=== PATIENT | female | born 1945 | race Caucasian/White ===

== ENCOUNTER → 2017-12-20 14:26 | Outpatient (CLI) | payer MEDICARE, OTHER, SELFPAY ==
[2017-12-20 16:04] LABS: Absolute Lymphocyte Count 8.63 X10^3/ul (0.83-4.51); Absolute Neutrophil Count 4.1 X10^3/uL (2.0-7.7); Basophil# 0.08 X10^3/uL; Basophil% 0.6 % (0-1); Eosinophil# 0.15 X10^3/uL; Eosinophils% 1.1 % (0-5); Hematocrit 44.5 % (37-47); Hemoglobin 14.8 g/dl (12.0-15.0); Lymphocyte # 8.63 X10^3/ul (4.0); Lymphocyte % 63.3 % (19-41); Mean Corp Hgb Conc 33.3 g/gl (32-36); Mean Corpuscular Hgb 30.3 pg (27.0-32.0); Mean Platelet Vol. 11.6 fl (6.2-12.0); Monocyte# 0.59 X10^3/uL; Monocyte% 4.3 % (0-10); Neutrophil # 4.14 X10^3/uL (2.7-7.7); Neutrophil % 30.4 % (47-70); Platelet Count 226 K/mm3 (150-450); RBC Distribution Width CV 13.4 % (11.6-14.6); RBC Distribution Width SD 44.5 fl (35.1-43.9); Red Blood Count 4.89 M/mm3 (4.2-5.4); White Blood Count 13.6 K/mm3 (4.4-11.0)
[2017-12-20 16:05] LABS: Differential Indicated SCAN CRITERIA MET; POSITIVE COUNT NO; POSITIVE DIFFERENTIAL YES; POSITIVE MORPHOLOGY NO
[2017-12-20 16:15] LABS: Differential Comment SCANNED
== END ==
PROVIDERS: Family Provider Family Medicine; PCP Family Medicine; Visit Provider Family Medicine
DX: C91.90 Lymphoid leukemia, unspecified not having achieved remission (principal)
CPT/HCPCS: 36415; 85025

== ENCOUNTER → 2018-06-20 10:00 | Outpatient (CLI) | payer MEDICARE, OTHER, SELFPAY ==
[2018-06-20 11:55] LABS: Absolute Lymphocyte Count 6.97 X10^3/ul (0.83-4.51); Absolute Neutrophil Count 3.7 X10^3/uL (2.0-7.7); Basophil# 0.07 X10^3/uL; Basophil% 0.6 % (0-1); Eosinophil# 0.14 X10^3/uL; Eosinophils% 1.2 % (0-5); Hematocrit 44.6 % (37-47); Hemoglobin 14.4 g/dl (12.0-15.0); Lymphocyte # 6.97 X10^3/ul (4.0); Lymphocyte % 61.3 % (19-41); Mean Corp Hgb Conc 32.3 g/gl (32-36); Mean Corpuscular Hgb 29.6 pg (27.0-32.0); Mean Corpuscular Volume 91.8 fL (81-99); Mean Platelet Vol. 12.1 fl (6.2-12.0); Monocyte# 0.44 X10^3/uL; Monocyte% 3.9 % (0-10); Neutrophil # 3.73 X10^3/uL (2.7-7.7); Neutrophil % 32.8 % (47-70); Platelet Count 210 K/mm3 (150-450); RBC Distribution Width CV 13.4 % (11.6-14.6); RBC Distribution Width SD 44.5 fl (35.1-43.9); Red Blood Count 4.86 M/mm3 (4.2-5.4); White Blood Count 11.4 K/mm3 (4.4-11.0)
[2018-06-20 12:01] LABS: Differential Indicated SCAN CRITERIA MET; POSITIVE COUNT NO; POSITIVE DIFFERENTIAL YES; POSITIVE MORPHOLOGY NO
--- OUTSIDE RECORDS SUMMARY | 2018-08-06 08:51 | XMS RPT_ITS ---
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, Community unspecified not Hospital having achieved Repository remission / C91.90(ICD-10) PROCEDURES PROCEDURES No Procedure Records FoundRESULTS RESULTS CBC W/DIFF, AUTOMATED Collected: 06/20/2018 Status: F Source: [place] 10:02 AM [facility] REPOSITORY TYPE CODE TESTS RESULT OUT OF RANGE REFERENCE UNITS LAB L100.1000 4.4-11.0 K/mm3 High WBC 11.4 LAB L100.1200 4.2-5.4 M/mm3 Normal RBC 4.86 LAB L100.1300 12.0-15.0 g/dl Normal HGB 14.4 LAB L100.1400 37-47 % Normal HCT 44.6 LAB L100.1500 81-99 fL Normal MCV 91.8 LAB L100.1600 27.0-32.0 pg Normal MCH 29.6 LAB L100.1700 32-36 g/gl Normal MCHC 32.3 LAB L100.1810 11.6-14.6 % Normal RDW CV 13.4 LAB L100.1820 35.1-43.9 fl High RDW SD 44.5 LAB L100.1900 150-450 K/mm3 Normal PLT 210 LAB L100.2000 6.2-12.0 fl High MPV 12.1 LAB L100.2100 47-70 % Low NEUT% 32.8 LAB L100.2200 19-41 % High LY% 61.3 LAB L100.2300 0-10 % Normal MONO% 3.9 LAB L100.2400 0-5 % Normal EO% 1.2 LAB L100.2500 0-1 % Normal BASO% 0.6 LAB L100.2550 0.0-0.9 % Normal IM GRAN % 0.200 Result Comment: IG% - Immature Granulocytes (promyelocytes, myelocytes and metamyelocytes) > 1% indicates that a LEFT SHIFT is Present. LAB L100.2620 2.0-7.7 X10 3/uL Normal Absolute Neut 3.7 LAB L100.2720 0.83-4.51 X10 3/ul High Absolute Lymph 6.97 LAB L100.4500 Normal SMEAR COMMENT COMMENT Result Comment: SLIDE SCANNED - LYMPHOCYTOSIS NOTED. Performed By: #### L100.0100 #### [facility] [place], [address] CBC W/DIFF, AUTOMATED Collected: 12/20/2017 Status: F Source: [place] 2:31 PM [facility] REPOSITORY TYPE CODE TESTS RESULT OUT OF RANGE REFERENCE UNITS LAB L100.1000 4.4-11.0 K/mm3 High WBC 13.6 LAB L100.1200 4.2-5.4 M/mm3 Normal RBC 4.89 LAB L100.1300 12.0-15.0 g/dl Normal HGB 14.8 LAB L100.1400 37-47 % Normal HCT 44.5 LAB L100.1500 81-99 fL Normal MCV 91.0 LAB L100.1600 27.0-32.0 pg Normal MCH 30.3 LAB L100.1700 32-36 g/gl Normal MCHC 33.3 LAB L100.1810 11.6-14.6 % Normal RDW CV 13.4 LAB L100.1820 35.1-43.9 fl High RDW SD 44.5 LAB L100.1900 150-450 K/mm3 Normal PLT 226 LAB L100.2000 6.2-12.0 fl Normal MPV 11.6 LAB L100.2100 47-70 % Low NEUT% 30.4 LAB L100.2200 19-41 % High LY% 63.3 LAB L100.2300 0-10 % Normal MONO% 4.3 LAB L100.2400 0-5 % Normal EO% 1.1 LAB L100.2500 0-1 % Normal BASO% 0.6 LAB L100.2550 0.0-0.9 % Normal IM GRAN % 0.300 Result Comment: IG% - Immature Granulocytes (promyelocytes, myelocytes and metamyelocytes) > 1% indicates that a LEFT SHIFT is Present. LAB L100.2620 2.0-7.7 X10 3/uL Normal Absolute Neut 4.1 LAB L100.2720 0.83-4.51 X10 3/ul High Absolute Lymph 8.63 LAB L100.4500 Normal SMEAR COMMENT SCANNED Result Comment: LYMPHOCYTOSIS NOTED Performed By: #### L100.0100 #### [facility] [address] [place], [address] ALLERGIES ALLERGIES No Allergies Records FoundENCOUNTERS ENCOUNTERS ADMIT/DISCHARGE ACCOUNT ADMITTING ENCOUNTER LOCATION SOURCE NUMBER CLASS 06/20/2018 [id number] Ambulatory [facility] 6 [facility] ing:MFPLAB Repository 12/20/2017 [id number] [facility] 3 [facility] ing:MFPLAB Repository PAYERS PAYERS ENCOUNTER GUARANTOR PAYER SUBSCRIBER SOURCE 06/20/2018 RENEE Primary RENEE Víctor [id number] Insurance:MEDICARE [facility] [id number] [address] Number: Repository [place] [id number]: ([phone]) Date:2018-06-20 [phone] () 06/20/2018 Secondary RENEE [place]ctor Insurance:COMMERCIAL SHEPLERDOB[id number] [id number] Repository Date:2018-06-20, / /WP: 06/20/2018 Tertiary NOT GIVENUNK [place] Insurance:SELF PAY [facility] Number: Effective Repository Date:2018-06-20 12/20/2017 RENEE Primary RENEE Víctor [id number] Insurance:MEDICARE SHEPLERDOB: [id number] Number: Repository [place] [id number]: [phone]) Date:2017-12-20 [phone] () 12/20/2017 Secondary RENEE [place] Insurance:COMMERCIAL SHEPLERDOB: [facility] [id number] [id number] Repository Date:2017-12-20//, / /WP: 12/20/2017 Tertiary NOT GIVENUNK [place] Insurance:SELF PAY [facility]: Effective Repository Date:2017-12-20
== END ==
PROVIDERS: Family Provider Family Medicine; PCP Family Medicine; Visit Provider Family Medicine
DX: C91.10 Chronic lymphocytic leukemia of B-cell type not having achieved remission (principal)
CPT/HCPCS: 36415; 85025

== ENCOUNTER → 2019-01-25 13:07 | Outpatient (CLI) | payer MEDICARE, OTHER, SELFPAY ==
[2019-01-16 09:27] VITALS: BMI 30.2
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
== END ==
PROVIDERS: Family Provider Family Medicine; PCP Family Medicine; Referring Provider Surgery; Visit Provider Surgery
DX: S02.31XS Fracture of orbital floor, right side, sequela (principal); X58.XXXS Exposure to other specified factors, sequela
CPT/HCPCS: 70486

== ENCOUNTER 2019-03-01 05:42 | Day surgery (SDC) | payer MEDICARE, OTHER, SELFPAY ==
[2019-01-16 09:27] VITALS: BMI 30.2
[2019-02-26 10:01] VITALS: BMI 30.2
--- NOTE | 2019-02-26 10:23 | HP_ITS ---
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 Is patient in pain?: Yes (lower abdominal cramping) Pain scale (1-10): 3 Allergies Iodinated Contrast Media [Iodinated Contrast- Oral and IV Dye] Allergy (Severe, Verified 02/26/19 09:59) CRITICAL lidocaine Allergy (Severe, Verified 02/26/19 09:59) CRITICAL Sulfa (Sulfonamide Antibiotics) Allergy (Mild, Verified 02/26/19 09:59) MILD adhesive tape Adverse Reaction (Intermediate, Verified 02/26/19 09:59) MODERATE Medications albuterol sulfate HFA 90 mcg/actuation aerosol inhaler 1 puff INHALATION Q6H PRN 11/28/18 [History Confirmed 02/26/19] clonazepam 1 mg tablet 1 mg PO DAILY tab 11/28/18 [History Confirmed 02/26/19] tiotropium bromide 1.25 mcg/actuation mist for inhalation 2 puff INHALATION DAILY 11/28/18 [History Confirmed 02/26/19] cholecalciferol (vitamin D3) 1,000 unit capsule 1,000 unit PO DAILY 02/26/19 [History Confirmed 02/26/19] lactobacillus combination no.8 3 billion cell capsule 3,000 mmu cells PO DAILY 02/26/19 [History Confirmed 02/26/19] sertraline 50 mg tablet 50 mg PO DAILY 02/26/19 [History Confirmed 02/26/19] vitamin B complex tablet 1 tab PO DAILY 02/26/19 [History Confirmed 02/26/19] 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) Skin laxity (Chronic) Dermatochalasis of both lower eyelids (Chronic) Dermatochalasis of both upper eyelids (Chronic) Surgical History History of facial fracture repair (Acute) Hx of neck surgery (Acute) History of appendectomy (Acute) History of knee surgery (Acute) History of hysterectomy (Acute) History of cholecystectomy (Acute) Family History Brother History of blood clots Bowel disease Cancer Hypertension CVA (cerebral vascular accident) Mother Heart disease Hypertension High cholesterol Osteoporosis Respiratory disease Father Lung cancer Other Angina at rest Social History (Updated 02/26/19 @ 10:23 by Luis Harry MD) Smoking Status: Former smoker alcohol intake: never substance use type: does not use caffeine: Yes what type of physical activity do you participate in: none frequency: does not exercise additional social history: DOES USE ASPIRIN DOES USE IBUPROFEN HPI HPI HPI: RENEE GODFREY, is a 73 F who presents to the office today for HPI HPI Surgical H&P: Yes HPI: RENEE GODFREY, is a 73 F who presents to the office today for positive Cologuard. The patient reports that she is having daily right and left lower quadrant pain. She says is been going on for years. She denies any family history of colon cancer. She says she does have occasional blood in her stool but she attributes this to hemorrhoids. She also has CLL. She has never had a colonoscopy in the past. ROS General General: Yes weight change and fatigue Musc Musculoskeletal: Yes arthritis Cardio Cardiovascular: No murmur, pacemaker, heart disease, atrial fibrillation, high blood pressure, heart attack, heart stent, palpitations, shortness of breat with exertion or chest pain Psych Psychiatric: Yes depression and anxiety Resp Respiratory: No shortness of breath, No sleep apnea, No cough, Yes COPD, Yes asthma, No emphysema, No wheezing Gastro Gastrointestinal: Yes abdominal pain, Yes nausea or vomiting, No diarrhea, Yes constipation, Yes blood in stool, Yes acid reflux, Yes hemorrhoids, No ulcers, No gallbladder problem, No black,tarry stools [place] Hematologic: No blood thinners Exam Const General: cooperative Orientation: alert, oriented x3 Resp Effort & Inspection: normal respiratory effort Auscultation: clear to auscultation bilaterally Cardio Rate: regular rate Rhythm: regular rhythm Heart Sounds: no murmurs GI Inspection: non-distended Palpation: soft, nontender Assessment & Plan Problems 1. Positive colorectal cancer screening using Cologuard test R19.5 2. Lower abdominal pain R10.30 Plan Patient had positive Cologuard test and has never had a colonoscopy. She does say that she has lower abdominal pain on a daily basis for years. She also says that she has blood in her stool but attributes this to hemorrhoids. Luis Harry MD Pager: [facility] [address] [place] [address], [address] [place] [address] Office: Orders Orders: Colonoscopy Today R19.5 Coding Level of Care Code Off vis,new,level 3 Diagnoses Positive colorectal cancer screening using Cologuard test R19.5 Lower abdominal pain R10.30 02/26/19 1023 <Electronically signed by Luis hyde MD> Date _ Luis Harry MD I have re-examined the patient. There are no clinical changes since date of exam.
--- NOTE | 2019-03-01 | COLBX_PTH ---
PATIENT: RENEE GODFREY LOC: EN U#:[id number] AGE/SX: 73/F ROOM: RE03/01/[address]: Dr. Luis Harry MD : 1945 BED: DIS: 03/01/2019 SPEC #: [id number] RECD: 03/01/19 13:02 STATUS: HAY JONAS #: [id number] RON: 03/01/19 00:[address]: Luis Harry DEPT: SURGICAL PATHOLOGY RECD BY: Benedict Schwartz ENTERED: 03/01/19 13:04 SP TYPE: COLON BX OTHR DR: Dr. Bruno Ozuna MD Tissues: Sigmoid colon biopsy Procedures: Surgery Specimen Level IV HEADER OPERATION: Colonoscopy (MAC) PRE-OP DIAGNOSIS: Positive Cologuard TISSUE SUBMITTED: Sigmoid colon at 20 cm polyp MICROSCOPIC DIAGNOSIS Sigmoid colon polyp at 20 cm, biopsy: Tubulovillous adenoma. AM:filemon 03/04/19 MICROSCOPIC DESCRIPTION Slides are reviewed. GROSS DESCRIPTION Received in fixative is one container labeled with the patient's name and designated sigmoid colon at 20 cm polyp. The specimen consists of a polyp that measures 1.5 x 1.5 x 1.0 cm. The polyp is serially sectioned and submitted entirely in one cassette. /SJ:sp 03/01/19 TC: 1 CPT: 07851
[2019-03-01 06:08] VITALS: BP 131/71; PULSE 74; RESP 16; TEMP 36.8; O2SAT 96; BMI 29.4
[2019-03-01] MEDS: Lactated Ringers 1,000 ML 100 ML IV (06:21)
--- NOTE | 2019-03-01 07:29 | OP.ENDO_ITS ---
03/01/2019 Bruno Ozuna MD [address] [place] [address] Re : Colonoscopy procedure for Falguni Weinstein Dear Dr. Ozuna This procedure was performed on Friday, March 01, 2019. My impressions and recommendations are as follows: Impressions : - One 12 mm polyp in the sigmoid colon, removed with a hot snare. Resected and retrieved. - The examination was otherwise normal on direct and retroflexion views. Recommendations : - Discharge patient to home. - Resume previous diet. - Continue present medications. - Await pathology results. - Repeat colonoscopy date to be determined after pending pathology results are reviewed for surveillance based on pathology results. My findings are described in the full procedure note, which is enclosed. If I can be of further assistance, please feel free to contact me at Doctor phone number(s): , Work: . Sincerely, Luis Harry MD 03/01/2019 7:28:52 AM This report has been signed electronically.
[2019-03-01 07:30] VITALS: BP 131/71; BP 144/67; PULSE 87; RESP 18; TEMP 36.8; O2SAT 96
[2019-03-01 07:35] VITALS: BP 131/71; BP 147/67; PULSE 84; RESP 18; O2SAT 94
[2019-03-01 07:40] VITALS: BP 131/71; BP 154/75; PULSE 73; RESP 18; O2SAT 96
[2019-03-01 07:46] VITALS: BP 131/71; BP 157/76; PULSE 71; RESP 18; TEMP 36.4; O2SAT 97
[2019-03-01 07:59] VITALS: BP 131/71
== END 2019-03-01 08:03 | disposition home or self-care (01) ==
LOC: EN 05:43 → AC 05:44
PROVIDERS: Family Provider Family Medicine; PCP Family Medicine; Referring Provider Surgery; Visit Provider Surgery
PROC: 0DJD8ZZ Inspection of Lower Intestinal Tract, Via Natural or Artificial Opening Endoscopic (ICD-10-PCS; CPT 45378; principal; 2019-03-01 06:55)
DX: D12.5 Benign neoplasm of sigmoid colon (principal); R19.5 Other fecal abnormalities; K64.9 Unspecified hemorrhoids; C91.10 Chronic lymphocytic leukemia of B-cell type not having achieved remission; J44.9 Chronic obstructive pulmonary disease, unspecified; F32.9 Major depressive disorder, single episode, unspecified; F41.9 Anxiety disorder, unspecified; Z78.0 Asymptomatic menopausal state; Z79.899 Other long term (current) drug therapy; Z88.2 Allergy status to sulfonamides; Z87.891 Personal history of nicotine dependence
CPT/HCPCS: 45385; 88305; J7120; J2405

== ENCOUNTER 2019-04-25 05:49 | Day surgery (SDC) | payer MEDICARE, OTHER, SELFPAY ==
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
[2019-04-25 06:12] VITALS: BP 124/76; PULSE 71; RESP 15; TEMP 36.5; O2SAT 98; BMI 29.6
[2019-04-25] MEDS: Lactated Ringers 1,000 ML 100 ML IV ×2 (06:25→10:40)
--- NOTE | 2019-04-25 07:30 | LES_PTH ---
PATIENT: RENEE GODFREY LOC: [facility] U#:[id number] AGE/SX: 73/F ROOM: RE04/25/[address]: Dr. Ronny Tyler MD : 1945 BED: DIS: 04/25/2019 SPEC #: [id number] RECD: 04/25/19 11:10 STATUS: HAY JONAS #: [id number] RON: 04/25/19 07:[address]: Ronny Tyler DEPT: SURGICAL PATHOLOGY RECD BY: Paco Wilkinson ENTERED: 04/25/19 11:42 SP TYPE: Lesion OTHR DR: Dr. Bruno Ozuna MD Tissues: A - Skin of eyelid, NOS B - Skin of eyelid, NOS Procedures: Surgery Specimen Level IV HEADER OPERATION: Blepharoplasty, upper eyelid PRE-OP DIAGNOSIS: Dermatochalasis of bilateral upper and lower eyelids; skin laxity lower eyelids; peripheral visual field defect bilateral eyes; late effect orbital floor fracture TISSUE SUBMITTED: A - Left eyelid tissue, B - Right eyelid tissue MICROSCOPIC DIAGNOSIS A. Left eyelid tissue, excision: Consistent with dermatochalasia. B. Right eyelid tissue, excision: Consistent with dermatochalasia. AM:miles 04/26/19 MICROSCOPIC DESCRIPTION Slides are reviewed. GROSS DESCRIPTION A - Received in fixative is one container labeled with the patient's name and designated left eyelid tissue. The specimen consists of a strip of menjivar-white skin measuring 3.5 x 0.3 x 0.1 cm. Also present in the container are detached pieces of soft tissue measuring in aggregate 2 x 1.5 x 0.3 cm. The entire specimen is submitted in one cassette. B - Received in fixative is one container labeled with the patient's name and designated right eyelid tissue. The specimen consists of a strip of menjivar-white skin measuring 3 x 0.3 x 0.1 cm. Also present in the container are detached pieces of soft tissue measuring in aggregate 2 x 2 x 0.3 cm. The entire specimen is submitted in one cassette. / MARYANA:miles 04/25/19 TC:5 CPT: 41132 x2
[2019-04-25] MEDS: Petrolatum,White 3.75GM OPTH.TUBE 1 APPLIC OPHTHALMIC (08:18)
[2019-04-25] MEDS: Epinephrine (1 mg/ml) 1 MG/ML VIAL (08:18)
[2019-04-25] MEDS: Neomycin/Polymyxin/Dexameth OINT 3.5GM OPTH.TUBE 1 APPLIC (10:20)
[2019-04-25] MEDS: Sodium/Calcium/Mag/Potassium 15 ML Bottle ×2 (10:20)
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
[2019-04-25 10:35] VITALS: BP 124/76; BP 154/84; PULSE 94; RESP 16; TEMP 36.3; O2SAT 92
[2019-04-25 10:45] VITALS: BP 124/76; BP 146/76; PULSE 88; RESP 16; O2SAT 92
--- NOTE | 2019-04-25 10:48 | DCINST_ITS ---
You will use the following diet at home:: No restrictions Discharge Activity: May not drive while taking narcotic pain medications., May Shower - in two days., - - keep head elevated. no heavy lifting. May shower in (days): 2 May resume sexual activity in: 10-14 days Ice area for (Minutes): 5 - as needed for swelling Weight Bearing Status: Weight bearing as tolerated Lifting Restrictions: 10 lbs. Keep extremity elevated above heart level: - - elevate head. Call your doctor if your incision/area has: Continuous Slow Oozing, Sudden Increased Bleeding, Increased Pain/ Swelling, Increased Redness, Foul Smelling Discharge, Swelling at the incision site Call your doctor if you observe: Fever of 101 or Higher, Coldness, Increased Pain, Shortness of breath, Chest pain, Calf discomfort, Uncontrolled pain, - - decreased vision Suture Line Care: - - apply antibiotic ointment to suture line daily. Cleanse incision/area with: - - may get incisions wet in the shower in 2 days. Allergies/Adverse Reactions: Allergies Iodinated Contrast Media [Iodinated Contrast- Oral and IV Dye] Allergy (Severe, Verified 04/25/19 06:04) CRITICAL lidocaine Allergy (Severe, Verified 04/25/19 06:04) CRITICAL stopped my heart Sulfa (Sulfonamide Antibiotics) Allergy (Mild, Verified 04/25/19 06:04) MILD adhesive tape Adverse Reaction (Intermediate, Verified 04/25/19 06:04) MODERATE atorvastatin [From Lipitor] Adverse Reaction (Verified 04/25/19 06:04) Other severe headache Medications to take at Discharge albuterol sulfate HFA 90 mcg/actuation aerosol inhaler 1 puff INHALATION Q6H PRN 11/28/18 clonazepam 1 mg tablet 1 mg PO QHS tab 11/28/18 tiotropium bromide 1.25 mcg/actuation mist for inhalation 2 puff INHALATION DAILY 11/28/18 cholecalciferol (vitamin D3) 1,000 unit capsule 1,000 unit PO DAILY 02/26/19 lactobacillus combination no.8 3 billion cell capsule 3,000 mmu cells PO DAILY 02/26/19 sertraline 50 mg tablet 50 mg PO DAILY 02/26/19 vitamin B complex tablet 1 tab PO DAILY 02/26/19 Calcium Carbonate [Tums] 500 mg PO PRN PRN 04/18/19 Fluticasone/Salmeterol [Advair 250-50 Diskus] 1 ea IH DAILY 04/18/19 Loratadine [Claritin] 10 mg PO PRN PRN 04/18/19 Clindamycin HCl [Cleocin] 300 mg PO TID #12 cap 04/25/19 Neomycin/Polymyxin B/Dexametha [Maxitrol Eye Ointment] 3.5 gm EACH EYE BID #1 tube 04/25/19 Oxycodone HCl/Acetaminophen [Percocet 5/325] 1 tab PO Q4H PRN PRN 5 Days #30 tab 04/25/19 The following prescriptions were given: Clindamycin HCl [Cleocin] 300 mg PO TID #12 cap Prescription Printed Neomycin/Polymyxin B/Dexametha [Maxitrol Eye Ointment] 3.5 gm EACH EYE BID #1 tube Prescription Printed Oxycodone HCl/Acetaminophen [Percocet 5/325] 1 tab PO Q4H PRN PRN 5 Days #30 tab PRN Reason: Pain Prescription Printed Primary Care Physician: Bruno Ozuna MD [Primary Care Provider] - Test Results: Test results from this visit will be discussed in further detail at your follow- up appointment, if applicable. Please Follow Up With: Ronny Tyler MD When: tomorrow 04/26/19. call [phone] for appt. Proposed Discharge Date: 04/25/19
[2019-04-25 11:00] VITALS: BP 124/76; BP 135/64; PULSE 84; RESP 16; O2SAT 93
[2019-04-25 11:05] VITALS: BP 124/76; BP 128/76; PULSE 85; RESP 16; TEMP 36.1; O2SAT 93
[2019-04-25 11:25] VITALS: BP 124/76
== END 2019-04-25 11:53 | disposition home or self-care (01) ==
LOC: SDC 05:50 → AC 05:52
PROVIDERS: Family Provider Family Medicine; PCP Family Medicine; Referring Provider Surgery; Visit Provider Surgery
PROC: (CPT 15822; principal; 2019-04-25 07:20)
DX: H02.831 Dermatochalasis of right upper eyelid (principal); H02.834 Dermatochalasis of left upper eyelid; H02.832 Dermatochalasis of right lower eyelid; H02.835 Dermatochalasis of left lower eyelid; H53.40 Unspecified visual field defects; S02.31XS Fracture of orbital floor, right side, sequela; Y09 Assault by unspecified means; H46.8 Other optic neuritis; H40.9 Unspecified glaucoma; J44.9 Chronic obstructive pulmonary disease, unspecified; F32.9 Major depressive disorder, single episode, unspecified; F41.9 Anxiety disorder, unspecified; Z79.899 Other long term (current) drug therapy; Z88.2 Allergy status to sulfonamides; Z87.891 Personal history of nicotine dependence; Z90.49 Acquired absence of other specified parts of digestive tract; Z90.710 Acquired absence of both cervix and uterus
CPT/HCPCS: 00103; 15822; 88305; J7120; J2405

== ENCOUNTER → 2019-11-20 10:40 | Outpatient (CLI) | payer MEDICARE, OTHER, SELFPAY ==
[2019-06-05 09:53] VITALS: BMI 29.6
[2019-11-20 12:49] LABS: Anion Gap 5 (5-15); BUN 12 mg/dL (7-18); BUN/Creat Ratio 15.9 RATIO (10-20); Calcium,Total 9.3 mg/dL (8.5-10.1); Chloride 105 mmol/L (98-107); Cholesterol 227 mg/dL (200); Creatinine, Serum 0.76 mg/dL (0.55-1.02); EST Glomerular Filtration Rate 80 mL/min (>60); Est Glom Filt Rate - Afr Amer 97 mL/min (>60); Glucose 90 mg/dL (74-106); High Density Lipoprotein 49 mg/dL; Potassium 3.8 mmol/L (3.5-5.1); Sodium Level 140 mmol/L (136-145); Triglycerides 142 mg/dL; Very Low Density Lipoprotein 28 mg/dL (5-40)
[2019-11-20 13:25] LABS: Vitamin D,25 Hydroxy 71.2 ng/mL
== END ==
PROVIDERS: PCP Family Medicine; Visit Provider Family Medicine
DX: Z00.00 Encounter for general adult medical examination without abnormal findings (principal); E78.5 Hyperlipidemia, unspecified; E55.9 Vitamin D deficiency, unspecified
CPT/HCPCS: 36415; 80048; 80061; 82306

== ENCOUNTER → 2020-07-17 13:44 | Outpatient (CLI) | payer MEDICARE, OTHER, SELFPAY ==
[2019-06-05 09:53] VITALS: BMI 29.6
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
== END ==
PROVIDERS: PCP Family Medicine; Referring Provider Family Medicine; Visit Provider Family Medicine
DX: M25.511 Pain in right shoulder (principal)
CPT/HCPCS: 73030

== ENCOUNTER → 2020-11-16 10:24 | Outpatient (CLI) | payer MEDICARE, OTHER, SELFPAY ==
[2019-06-05 09:53] VITALS: BMI 29.6
[2020-11-16 12:37] LABS: Anion Gap 3 (5-15); BUN 16 mg/dL (7-18); BUN/Creat Ratio 19.5 RATIO (10-20); Calcium,Total 9.5 mg/dL (8.5-10.1); Chloride 106 mmol/L (98-107); Cholesterol 248 mg/dL (200); Creatinine, Serum 0.82 mg/dL (0.55-1.02); EST Glomerular Filtration Rate 73 mL/min (>60); Est Glom Filt Rate - Afr Amer 88 mL/min (>60); Glucose 90 mg/dL (74-106); High Density Lipoprotein 55 mg/dL; Sodium Level 141 mmol/L (136-145); Triglycerides 126 mg/dL; Very Low Density Lipoprotein 25 mg/dL (5-40)
== END ==
PROVIDERS: PCP Family Medicine; Referring Provider Family Medicine; Visit Provider Family Medicine
DX: I10 Essential (primary) hypertension (principal)
CPT/HCPCS: 36415; 80048; 80061

== ENCOUNTER → 2021-04-30 11:03 | Outpatient (CLI) | payer MEDICARE, OTHER, SELFPAY ==
--- NOTE | 2021-04-30 11:08 | RAD_ITS ---
STUDY: X-RAY - RIGHT KNEE REASON FOR EXAM: Chronic right knee pain. TECHNIQUE: 3 view(s) of the knee. COMPARISON: None. FINDINGS: Normal visualized distal femur. Normal visualized proximal tibia and fibula. Normal proximal tibiofibular articulation. Normal medial femorotibial compartment. There is moderate joint space narrowing of the lateral femorotibial compartment. There is mild joint space narrowing of the patellofemoral articulation. There is a small joint effusion. RAD/Knee 3 Views IMPRESSION: Arthrosis of the lateral femorotibial and patellofemoral compartments. Small joint effusion. Electronically Signed: Phoenix Anne MD at 11:54 EDT Tel , Service support ,
[2021-04-30 13:23] LABS: ALB/GLOB Ratio 1.1 RATIO (0.9-2.4); AST(SGOT) 19 U/L (15-37); Alanine Aminotransfer ALT/SGPT 22 U/L (13-56); Albumin, Serum 3.7 g/dL (3.2-5.0); Alkaline Phosphatase 75 U/L (45-117); Anion Gap 4 (5-15); BUN 12 mg/dL (7-18); BUN/Creat Ratio 14.3 RATIO (10-20); Calcium,Total 9.4 mg/dL (8.5-10.1); Chloride 104 mmol/L (98-107); Cholesterol 249 mg/dL (200); Creatinine, Serum 0.84 mg/dL (0.55-1.02); EST Glomerular Filtration Rate 71 mL/min (>60); Est Glom Filt Rate - Afr Amer 86 mL/min (>60); Globulin 3.5 g/dL (2.2-4.2); Glucose 110 mg/dL (74-106); High Density Lipoprotein 52 mg/dL; Protein, Total 7.2 g/dL (6.4-8.2); Sodium Level 140 mmol/L (136-145); Triglycerides 132 mg/dL; Very Low Density Lipoprotein 26 mg/dL (5-40)
== END ==
PROVIDERS: PCP Family Medicine; Referring Provider Family Medicine; Visit Provider Family Medicine
DX: M25.561 Pain in right knee (principal); E78.5 Hyperlipidemia, unspecified
CPT/HCPCS: 36415; 73562; 80053; 80061

== ENCOUNTER → 2021-06-15 | Outpatient (CLI) | payer MEDICARE, OTHER, SELFPAY | END | disposition home or self-care (01) | PROVIDERS: PCP Family Medicine; Referring Provider Family Medicine; Visit Provider Family Medicine | DX: B34.9 Viral infection, unspecified (principal) | CPT/HCPCS: 87635; U0005; U0003 ==

== ENCOUNTER → 2022-02-21 | Outpatient (CLI) | payer MEDICARE, OTHER, SELFPAY ==
[2022-02-21 15:30] LABS: AST(SGOT) 12 U/L (15-37); Alanine Aminotransfer ALT/SGPT 25 U/L (13-56); Albumin, Serum 3.4 g/dL (3.2-5.0); Alkaline Phosphatase 73 U/L (45-117); Anion Gap 5 (5-15); BUN 14 mg/dL (7-18); BUN/Creat Ratio 14.5 RATIO (10-20); Calcium,Total 8.8 mg/dL (8.5-10.1); Chloride 106 mmol/L (98-107); Cholesterol 236 mg/dL (200); Creatinine, Serum 0.96 mg/dL (0.55-1.02); EST Glomerular Filtration Rate 60 mL/min (>60); Est Glom Filt Rate - Afr Amer 73 mL/min (>60); Globulin 3.5 g/dL (2.2-4.2); Glucose 145 mg/dL (74-106); High Density Lipoprotein 46 mg/dL; Potassium 4.1 mmol/L (3.5-5.1); Protein, Total 6.9 g/dL (6.4-8.2); Sodium Level 140 mmol/L (136-145); Triglycerides 143 mg/dL; Very Low Density Lipoprotein 29 mg/dL (5-40)
== END | disposition home or self-care (01) ==
LOC: MFPLAB 11:08
PROVIDERS: PCP Family Medicine; Referring Provider Family Medicine; Visit Provider Family Medicine
DX: E78.5 Hyperlipidemia, unspecified (principal)
CPT/HCPCS: 36415; 80053; 80061

== ENCOUNTER → 2022-06-13 | Outpatient (CLI) | payer MEDICARE, OTHER, SELFPAY ==
[2022-06-13 17:47] LABS: Absolute Lymphocyte Count 9.29 X10^3/uL (0.83-4.51); Absolute Neutrophil Count 7.1 X10^3/uL (2.0-7.7); Basophil# 0.12 X10^3/uL; Basophil% 0.7 % (0-1); Eosinophil# 0.27 X10^3/uL; Eosinophils% 1.5 % (0-5); Hematocrit 46.7 % (37-47); Lymphocyte # 9.29 X10^3/ul (0.83-4.51); Lymphocyte % 52.2 % (19-41); Mean Corp Hgb Conc 32.1 g/dL (32-36); Mean Corpuscular Hgb 29.3 pg (27.0-32.0); Mean Corpuscular Volume 91.2 fL (81-99); Mean Platelet Vol. 11.5 fl (6.2-12.0); Monocyte# 0.93 X10^3/uL; Monocyte% 5.2 % (0-10); NRBC Flagged by Analyzer 0 % (0-5); Neutrophil # 7.11 X10^3/uL (2.7-7.7); POSITIVE DIFFERENTIAL YES; Platelet Count 228 K/mm3 (150-450); RBC Distribution Width CV 13.1 % (11.6-14.6); RBC Distribution Width SD 44.1 fl (35.1-43.9); Red Blood Count 5.12 M/mm3 (4.2-5.4); White Blood Count 17.8 K/mm3 (4.4-11.0)
[2022-06-13 18:02] LABS: Differential Indicated SCAN CRITERIA MET
[2022-06-13 18:10] LABS: Anisocytosis RARE; Atypical Lymphocyte 1+ %; Macrocytosis RARE; Platelet Estimate ADEQUATE (ADEQ); Red Cell Morphology N CHROM NORMAL (NORM C&C)
[2022-06-13 18:11] LABS: Reactive Lymphocyte 1+
[2022-06-13 18:13] LABS: ALB/GLOB Ratio 1.3 RATIO (0.9-2.4); AST(SGOT) 13 U/L (15-37); Alanine Aminotransfer ALT/SGPT 21 U/L (13-56); Albumin, Serum 3.4 g/dL (3.2-5.0); Alkaline Phosphatase 76 U/L (45-117); Anion Gap 7 (5-15); BUN 13 mg/dL (7-18); BUN/Creat Ratio 14.9 RATIO (10-20); Calcium,Total 9.2 mg/dL (8.5-10.1); Chloride 103 mmol/L (98-107); Creatinine, Serum 0.87 mg/dL (0.55-1.02); EST Glomerular Filtration Rate 68 mL/min (>60); Est Glom Filt Rate - Afr Amer 82 mL/min (>60); Globulin 2.6 g/dL (2.2-4.2); Glucose 144 mg/dL (74-106); Sodium Level 140 mmol/L (136-145)
== END | disposition home or self-care (01) ==
LOC: MFPLAB 14:16
PROVIDERS: PCP Family Medicine; Visit Provider Family Medicine
DX: R53.83 Other fatigue (principal)
CPT/HCPCS: 36415; 80053; 85025

== ENCOUNTER → 2022-07-07 | Outpatient (CLI) | payer MEDICARE, OTHER, SELFPAY ==
[2022-07-07 17:47] LABS: Absolute Lymphocyte Count 6.24 X10^3/uL (0.83-4.51); Absolute Neutrophil Count 4.6 X10^3/uL (2.0-7.7); Basophil# 0.09 X10^3/uL; Basophil% 0.8 % (0-1); Eosinophil# 0.23 X10^3/uL; Hemoglobin 14.8 g/dL (12.0-15.0); Lymphocyte # 6.24 X10^3/ul (0.83-4.51); Mean Corp Hgb Conc 32.9 g/dL (32-36); Mean Corpuscular Hgb 29.7 pg (27.0-32.0); Mean Corpuscular Volume 90.4 fL (81-99); Mean Platelet Vol. 10.8 fl (6.2-12.0); Monocyte# 0.58 X10^3/uL; Monocyte% 4.9 % (0-10); NRBC Flagged by Analyzer 0 % (0-5); Neutrophil # 4.59 X10^3/uL (2.7-7.7); POSITIVE DIFFERENTIAL YES; Platelet Count 214 K/mm3 (150-450); RBC Distribution Width CV 13.2 % (11.6-14.6); RBC Distribution Width SD 43.9 fl (35.1-43.9); Red Blood Count 4.98 M/mm3 (4.2-5.4); White Blood Count 11.8 K/mm3 (4.4-11.0)
[2022-07-07 18:19] LABS: Differential Indicated SCAN CRITERIA MET
[2022-07-07 18:41] LABS: Anion Gap 5 (5-15); BUN 12 mg/dL (7-18); Calcium,Total 8.8 mg/dL (8.5-10.1); Chloride 105 mmol/L (98-107); EST Glomerular Filtration Rate 75 mL/min (>60); Est Glom Filt Rate - Afr Amer 90 mL/min (>60); Glucose 79 mg/dL (74-106); Potassium 4.1 mmol/L (3.5-5.1); Sodium Level 142 mmol/L (136-145)
[2022-07-07 19:19] LABS: Platelet Estimate ADEQUATE (ADEQ); Red Cell Morphology N CHROM NORMAL (NORM C&C)
[2022-07-07 19:20] LABS: Anisocytosis RARE; Atypical Lymphocyte 1+ %; Auer Rods RARE; Macrocytosis RARE; Reactive Lymphocyte 1+
== END | disposition home or self-care (01) ==
LOC: MFPLAB 17:04
PROVIDERS: PCP Family Medicine; Referring Provider Family Medicine; Visit Provider Family Medicine
DX: J44.9 Chronic obstructive pulmonary disease, unspecified (principal)
CPT/HCPCS: 36415; 80048; 85025

== ENCOUNTER → 2023-03-29 | Outpatient (CLI) | payer MEDICARE, OTHER, SELFPAY ==
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
== END | disposition home or self-care (01) ==
LOC: MRI 10:45
PROVIDERS: PCP Student in an Organized Health Care Education/Training Program; Referring Provider Orthopaedic Surgery; Visit Provider Orthopaedic Surgery
DX: S22.060A Wedge compression fracture of T7-T8 vertebra, initial encounter for closed fracture (principal); X58.XXXA Exposure to other specified factors, initial encounter
CPT/HCPCS: 72146